=== PATIENT | female | born 1980 | race Caucasian/White ===

== ENCOUNTER 2019-01-29 14:38 | Emergency (ER) | payer MEDICAID, OTHER ==
[~2019-01-29] VITALS: Ht 167.6 cm; Wt 98.0 kg
--- NOTE | 2019-01-29 15:19 | ED Psychosocial ---
General Chief Complaint: Psych/Social Disorder Stated Complaint: SUICIDAL IDEATION History of Present Illness Date Seen by Provider: Jan 29, 2019 Time Seen by Provider: 15:15 Initial Comments The patient is a 38-year-old female who presents for evaluation of both suicidal and homicidal thoughts over the last few days. She states that she has been upset lately and actually thought about strangling her dog because it was the closest thing to her. She is also homicidal against her uncle. She states she lives with both of her parents. She reports a history of depression and suicidal attempts in the past. She has been hospitalized for psychiatric reasons in the past. She denies any recent inciting incident. She is alert and oriented 4, calm, and appears to be in no distress. She denies any ingestions or attempts to harm herself but did think about cutting her wrists. She denies fevers or chills, nausea or vomiting, chest pain or shortness of breath, abdominal or back pain. Timing/Duration: yesterday Severity: moderate Associated Symptoms: suicidal ideation (KALI GROVES DO) Allergies and Home Medications Allergies Coded Allergies: sertraline (Verified Allergy, Unknown, 01/29/19) Patient Home Medication List Home Medication List Reviewed: Yes (KALI GROVES DO) Review of Systems Constitutional: no symptoms reported EENTM: no symptoms reported Respiratory: no symptoms reported Cardiovascular: no symptoms reported Gastrointestinal: no symptoms reported Genitourinary: no symptoms reported : No Musculoskeletal: no symptoms reported Skin: no symptoms reported Psychiatric/Neurological: Depressed (tenderness to depression, suicidal thoughts, and homicidal thoughts) (KALI GROVES DO) All Other Systems Reviewed Negative Unless Noted: Yes (KALI GROVES DO) Past Sbiguvf-Zswdxi-Xgynkm Hx Past Med/Social Hx: Reviewed Nursing Past Med/Soc Hx, Reviewed and Corrections made (KALI GROVES DO) Physical Exam Vital Signs - First Documented 01/29/19 15:02 Temp 97.5 Pulse 110 Resp 20 B/P (MAP) 128/85 (99) Pulse Ox 97 O2 Delivery Room Air (HUSSEIN ACOSTA DO) Capillary Refill : (KALI GROVES DO) Height, Weight, BMI Height: '" Weight: lbs. oz. 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, no motor/sensory deficits, alert, normal mood/affect, oriented x 3 Appearance/Memory: appropriate appearance, appropriate insight Behavior/Eye Contact: cooperative Thoughts/Hallucinations: no apparent hallucination; No flight of ideas Skin: normal color, warm/dry Lymphatic: no adenopathy (KALI GROVES DO) Progress/Results/Core Measures Results/Orders Lab Results Laboratory Tests Test 01/29/19 15:08 01/29/19 15:35 01/29/19 21:56 Range/Units Urine Color YELLOW Urine Clarity CLEAR Urine pH 6.5 5-9 Urine Specific [place] 1.010 L 1.016-1.022 Urine Protein NEGATIVE NEGATIVE Urine Glucose (UA) 3+ H NEGATIVE Urine Ketones NEGATIVE NEGATIVE Urine Nitrite NEGATIVE NEGATIVE Urine Bilirubin NEGATIVE NEGATIVE Urine Urobilinogen 0.2 NORMAL MG/DL Urine Leukocyte Esterase NEGATIVE NEGATIVE Urine RBC (Auto) NEGATIVE NEGATIVE Urine RBC NONE /HPF Urine WBC 0-2 /HPF Urine Squamous Epithelial Cells 10-25 H /HPF Urine Crystals NONE /LPF Urine Bacteria TRACE /HPF Urine Casts NONE /LPF Urine Mucus SMALL H /LPF Urine Culture Indicated NO Urine Test NEGATIVE NEGATIVE Urine Opiates Screen NEGATIVE NEGATIVE Urine Oxycodone Screen NEGATIVE NEGATIVE Urine Methadone Screen NEGATIVE NEGATIVE Urine Propoxyphene Screen NEGATIVE NEGATIVE Urine Barbiturates Screen NEGATIVE NEGATIVE Ur Tricyclic Antidepressants Screen NEGATIVE NEGATIVE Urine Phencyclidine Screen NEGATIVE NEGATIVE Urine Amphetamines Screen NEGATIVE NEGATIVE Urine Methamphetamines Screen NEGATIVE NEGATIVE Urine Benzodiazepines Screen POSITIVE H NEGATIVE Urine Cocaine Screen NEGATIVE NEGATIVE Urine Cannabinoids Screen NEGATIVE NEGATIVE White Blood Count 11.7 H 4.3-11.0 10^3/uL Red Blood Count 4.18 L 4.35-5.85 10^6/uL Hemoglobin 12.7 11.5-16.0 G/DL Hematocrit 38 35-52 % Mean Corpuscular Volume 90 80-99 FL Mean Corpuscular Hemoglobin 30 25-34 PG Mean Corpuscular Hemoglobin Concent 34 32-36 G/DL Red Cell Distribution Width 13.3 10.0-14.5 % Platelet Count 399 130-400 10^3/uL Mean Platelet Volume 8.8 7.4-10.4 FL Neutrophils (%) (Auto) 76 H 42-75 % Lymphocytes (%) (Auto) 16 12-44 % Monocytes (%) (Auto) 6 0-12 % Eosinophils (%) (Auto) 1 0-10 % Basophils (%) (Auto) 0 0-10 % Neutrophils # (Auto) 9.0 H 1.8-7.8 X 10^3 Lymphocytes # (Auto) 1.9 1.0-4.0 X 10^3 Monocytes # (Auto) 0.7 0.0-1.0 X 10^3 Eosinophils # (Auto) 0.1 0.0-0.3 10^3/uL Basophils # (Auto) 0.0 0.0-0.1 10^3/uL Sodium Level 131 L 135-145 MMOL/L Potassium Level 4.3 3.6-5.0 MMOL/L Chloride Level 95 L 98-107 MMOL/L Carbon Dioxide Level 24 21-32 MMOL/L Anion Gap 12 5-14 MMOL/L Blood Urea Nitrogen 8 7-18 MG/DL Creatinine 0.42 L 0.60-1.30 MG/DL Estimat Glomerular Filtration Rate > 60 BUN/Creatinine Ratio 19 Glucose Level 316 H 70-105 MG/DL Calcium Level 9.4 8.5-10.1 MG/DL Corrected Calcium 8.5-10.1 MG/DL Total Bilirubin 0.3 0.1-1.0 MG/DL Aspartate Amino Transf (AST/SGOT) 11 5-34 U/L Alanine Aminotransferase (ALT/SGPT) 12 0-55 U/L Alkaline Phosphatase 145 H 40-136 U/L Total Protein 8.7 H 6.4-8.2 GM/DL Albumin 4.6 H 3.2-4.5 GM/DL Salicylates Level < 0.3 L 5.0-20.0 MG/DL Acetaminophen Level < 10 L 10-30 UG/ML Serum Alcohol < 10 <10 MG/DL Glucometer 220 H 70-110 MG/DL (HUSSEIN ACOSTA DO) Vital Signs/I&O 6/7/19 23:58 Temp 98.4 Pulse 93 Resp 20 B/P (MAP) 122/76 (91) Pulse Ox 97 O2 Delivery Room Air 01/30/19 00:00 Intake Total 1000 ml Balance 1000 ml (HUSSEIN ACOSTA DO) Progress Progress Note : Progress Note @1635 - Pt medically cleared at this time. Pt getting 1L NS bolus to improve hyponatremia. Pt is stable. @1800 - Pt care transferred to Dr. Ana Rosa Acosta at this time. (KALI GROVES DO) Progress Note : Progress Note @18:30- spoke c/ the psych screener who felt Meche did not require inpatient placement, or treatment @ this time and recommended outpatient follow up to her. (HUSSEIN ACOSTA DO) Initial ECG Impression Date: Jan 29, 2019 Initial ECG Impression Time: 16:20 Comment Normal sinus rhythm, rate of 90, normal axis, no acute ischemic findings noted, no STEMI, reviewed and interpreted by myself (KALI GROVES DO) Care transferred to: @1800 - Care transferred to Dr. Ana Rosa Acosta.\\ (KALI GROVES DO) Departure Impression Primary Impression: Depression Additional Impressions: Suicidal thoughts Homicidal thoughts Disposition: 65 XFER TO PSYCH HOSP/UNIT Condition: Stable Transfer Time Spoke to Accepting Phy: 23:10 Transfer Progress Notes Patient accepted by Dr. Jhaveri to [facility] in [place]. Transfer Facility: [facility] Method of Transfer: Transfer via [facility] (HUSSEIN ACOSTA DO) Departure-Patient Inst. Referrals: NO,LOCAL PHYSICIAN (PCP/Family) Primary Care Physician KALI GROVES DO Jan 29, 2019 15:18 HUSSEIN ACOSTA DO Jan 29, 2019 18:49
[2019-01-29 15:44] LABS: AMPHETAMINE SCREEN, URINE NEGATIVE (NEGATIVE); BARBITURATE SCREEN URINE NEGATIVE (NEGATIVE); BENZODIAZEPINES SCREEN URINE POSITIVE (NEGATIVE); CANNABINOID SCREEN, URINE NEGATIVE (NEGATIVE); COCAINE SCREEN URINE NEGATIVE (NEGATIVE); HCG,QUALITATIVE URINE NEGATIVE (NEGATIVE); METHADONE STAT NEGATIVE (NEGATIVE); METHAMPHETAMINE SCREEN URINE S NEGATIVE (NEGATIVE); OPIATE SCREEN URINE NEGATIVE (NEGATIVE); TRICYCLIC ANTIDEPRESSANTS SCRE NEGATIVE (NEGATIVE)
[2019-01-29 15:45] LABS: CLARITY,URINE CLEAR; COLOR,URINE YELLOW; OXYCODONE STAT NEGATIVE (NEGATIVE); PH,URINE 6.5 (5-9); PROPOXYPHENE STAT NEGATIVE (NEGATIVE)
[2019-01-29 15:46] LABS: BACTERIA,URINE TRACE /HPF; BILIRUBIN,URINE NEGATIVE (NEGATIVE); GLUCOSE, URINE (UA) 3+ (NEGATIVE); KETONES,URINE NEGATIVE (NEGATIVE); LEUKOCYTE ESTERASE ,URINE NEGATIVE (NEGATIVE); NITRITE,URINE NEGATIVE (NEGATIVE); PROTEIN,URINE NEGATIVE (NEGATIVE); UROBILINOGEN,URINE 0.2 MG/DL (NORMAL); WBC,URINE 0-2 /HPF
[2019-01-29 15:47] LABS: WHITE BLOOD COUNT 11.7 10^3/uL (4.3-11.0)
[2019-01-29 15:48] LABS: BASOPHILS % (AUTO) 0 % (0-10); EOSINOPHILS % (AUTO) 1 % (0-10); HEMATOCRIT 38 % (35-52); HEMOGLOBIN 12.7 G/DL (11.5-16.0); LYMPHOCYTES # (AUTO) 1.9 X 10^3 (1.0-4.0); LYMPHOCYTES % (AUTO) 16 % (12-44); MEAN CORPUSCULAR HEMOGLOBIN 30 PG (25-34); MEAN CORPUSCULAR HGB CONC 34 G/DL (32-36); MEAN CORPUSCULAR VOLUME 90 FL (80-99); MEAN PLATELET VOLUME 8.8 FL (7.4-10.4); MONOCYTES % (AUTO) 6 % (0-12); NEUTROPHILS % (AUTO) 76 % (42-75); PLATELET COUNT 399 10^3/uL (130-400); RED CELL DISTRIBUTION WIDTH 13.3 % (10.0-14.5)
[2019-01-29 15:49] LABS: EOSINOPHILS # (AUTO) 0.1 10^3/uL (0.0-0.3); MONOCYTES # (AUTO) 0.7 X 10^3 (0.0-1.0)
[2019-01-29 16:11] LABS: ALANINE AMINOTRANSFERASE 12 U/L (0-55); ALBUMIN 4.6 GM/DL (3.2-4.5); ALKALINE PHOSPHATASE 145 U/L (40-136); BILIRUBIN,TOTAL 0.3 MG/DL (0.1-1.0); BUN/CREATININE RATIO 19; CALCIUM 9.4 MG/DL (8.5-10.1); CARBON DIOXIDE 24 MMOL/L (21-32); CHLORIDE 95 MMOL/L (98-107); CREATININE SERUM 0.42 MG/DL (0.60-1.30); GFR ESTIMATED > 60; GLUCOSE 316 MG/DL (70-105); POTASSIUM 4.3 MMOL/L (3.6-5.0); SODIUM 131 MMOL/L (135-145); TOTAL PROTEIN 8.7 GM/DL (6.4-8.2)
[2019-01-29 16:12] LABS: ACETAMINOPHEN < 10 UG/ML (10-30); SALICYLATE < 0.3 MG/DL (5.0-20.0)
[2019-01-29] MEDS ORDERED: NS IV 1000 ML 1,000 ML IV SCH (16:45)
--- OUTSIDE RECORDS SUMMARY | 2019-01-29 17:18 | XMS REPORT ---
Author Author ADA LOFTON Organization [employer] Address Unknown Phone Unavailable Care Team Providers Care Group Fitness Manager Name Role Phone ADA LOFTON CP Unavailable Allergies No Known Allergies Problems Problem Type Condition ICD-9 Code Onset Dates Condition Status Assessment Dental examination V72.2 Active Medications No Known Medications Procedures Procedure Coding System Code Date INTRAORL-PERIAPICAL 1 FILM 55928 CPT-4 D0220 Apr 12, 2015 SURG REMOVAL ERUPTED TOOTH CPT-4 D7210 Apr 12, 2015 LTD ORAL EVALUATION - PROBLEM FOCUS CPT-4 D0140 Apr 12, 2015 Results No Known Results Summary Purpose [employer] Submission
--- OUTSIDE RECORDS SUMMARY | 2019-01-29 17:18 | XMS REPORT | Continuity of Care Document ---
Author Organization Unknown Address Unknown Allergies Active Description Code Type Severity Reaction Onset Reported/Identified Relationship to Patient Clinical Status Yes SERTRALINE HCL 05479 DRUG High Sob~Rash 02/07/2012 Yes SIMVASTATIN - HIGH DOSE 78533 DRUG INGREDI High Sob 02/07/2012 Medications Medication Packaging Start Date Stop Date Route Dosage Sig INFLUENZA VAC SPLIT QUAD 0.5 ML IM HEMALATHA 08/01/2015 Intramuscular 0.5 Prior to discharge TRAZODONE HCL 100 MG PO TABS 08/01/2015 Oral 100 BEDTIME PRN OLANZAPINE 10 MG PO TBDP 08/01/2015 Sublingual 10 2 TIMES DAILY PRN QUETIAPINE FUMARATE 25 MG PO TABS 08/01/2015 Oral 25 4 TIMES DAILY PRN MAGNESIUM HYDROXIDE 400 MG/5ML PO SUSP 08/01/2015 Oral 30 DAILY PRN ACETAMINOPHEN 325 MG PO TABS 08/01/2015 Oral 650 EVERY 6 HOURS PRN ALUM T MAG HYDROXIDE-SIMETH 200-200-20 MG/5ML PO SUSP 08/01/2015 Oral 30 4 TIMES DAILY PRN FLUTICASONE PROPIONATE HFA 110 MCG/ACT IN AERO 08/01/2015 Inhalation 1 2 TIMES DAILY PRN ALBUTEROL SULFATE HFA 108 (90 BASE) MCG/ACT IN AERS 08/01/2015 Inhalation 2 4 TIMES DAILY PRN METFORMIN HCL 500 MG PO TABS 08/01/2015 Oral 1000 2 TIMES DAILY WITH MEALS GLYBURIDE 5 MG PO TABS 08/01/2015 Oral 5 DAILY WITH BREAKFAST GLYBURIDE 5 MG PO TABS 08/01/2015 Oral 5 DAILY WITH BREAKFAST METFORMIN HCL 500 MG PO TABS 08/01/2015 Oral 1000 2 TIMES DAILY WITH MEALS INFLUENZA VAC SPLIT QUAD 0.5 ML IM HEMALATHA 08/01/2015 Intramuscular 0.5 ONCE ESCITALOPRAM OXALATE 20 MG PO TABS 08/01/2015 Oral 20 DAILY DEXTROSE 50 % IV SOLN 08/01/2015 Intravenous 50 PRN GLUCOSE 40 % PO GEL 08/01/2015 Oral 15 PRN GLUCAGON HCL (RDNA) 1 MG IJ SOLR 08/01/2015 Intravenous 1 PRN INSULIN ASPART 100 UNIT/ML SC SOPN 08/01/2015 Subcutaneous 3 TIMES DAILY BEFORE MEALS QUETIAPINE FUMARATE ER 50 MG PO TB24 08/01/2015 Oral 50 DAILY AT 1900 QUETIAPINE FUMARATE ER 50 MG PO TB24 08/02/2015 Oral 100 DAILY AT 1900 GLYBURIDE 5 MG PO TABS 08/03/2015 Oral 10 DAILY WITH BREAKFAST QUETIAPINE FUMARATE ER 50 MG PO TB24 08/03/2015 Oral 150 DAILY AT 1900 Problems Date Dx Coded Attending Type Code Diagnosis Diagnosed By 08/01/2015 ARACELI OTT V 114413 Suicidal [facility] 08/01/2015 TANJIM, ARACELI V 069485 Suicidal [facility] 08/01/2015 TANJIM, ARACELI V 134329 Suicidal [facility] 08/01/2015 TANJIM, ARACELI P F32.9 Major depressive disorder, single episode, unspecified [facility] 08/01/2015 TANJIM, ARACELI P R45.851 Suicidal ideations [facility], [facility] 08/01/2015 TANJIM, ARACELI V [id number] Suicidal [facility] 08/01/2015 TANJIM, ARACELI P F32.9 Major depressive disorder, single episode, unspecified [facility] 08/01/2015 TANJIM, ARACELI P R45.851 Suicidal ideations [facility] 08/01/2015 TANJIM, ARACELI V [id number] Suicidal [facility] 08/01/2015 TANJIM, ARACELI P F32.9 Major depressive disorder, single episode, unspecified [facility] 08/01/2015 TANJIM, ARACELI P R45.851 Suicidal ideations [facility] 08/02/2015 TANJIM, ARACELI V [id number] Suicidal [facility], [facility] 08/02/2015 TANJIM, ARACELI P F32.9 Major depressive disorder, single episode, unspecified [facility] 08/02/2015 TANJIM, ARACELI P R45.851 Suicidal ideations [facility] 08/02/2015 TANJIM, ARACELI V [id number] Suicidal [facility], [facility] 08/02/2015 TANJIM, ARACELI P F32.9 Major depressive disorder, single episode, unspecified [facility], [facility] 08/02/2015 TANJIM, ARACELI P R45.851 Suicidal ideations [facility], [facility] 08/02/2015 TANJIM, ARACELI V [id number] Suicidal [facility], [facility] 08/02/2015 TANJIM, ARACELI P F32.9 Major depressive disorder, single episode, unspecified [facility], [facility] 08/02/2015 TANJIM, ARACELI P R45.851 Suicidal ideations [facility], [facility] 08/02/2015 TANJIM, ARACELI V [id number] Suicidal [facility]IM, [facility] 08/02/2015 TANJIM, ARACELI P F32.9 Major depressive disorder, single episode, unspecified [facility], [facility] 08/02/2015 TANJIM, ARACELI P R45.851 Suicidal ideations [facility], [facility] 08/03/2015 TANJIM, ARACELI V [id number] Suicidal [facility]IM, [facility] 08/03/2015 TANJIM, ARACELI P F32.9 Major depressive disorder, single episode, unspecified [facility]IM, [facility] 08/03/2015 TANJIM, ARACELI P R45.851 Suicidal ideations [facility], [facility] 08/03/2015 TANJIM, ARACELI V [id number] Suicidal [facility]IM, [facility] 08/03/2015 TANJIM, ARACELI P F32.9 Major depressive disorder, single episode, unspecified [facility], [facility] 08/03/2015 TANJIM, ARACELI P R45.851 Suicidal ideations [facility], [facility] 08/03/2015 TANJIM, ARACELI V 100633 Suicidal [facility]IM, [facility] 08/03/2015 TANJIM, ARACELI P F32.9 Major depressive disorder, single episode, unspecified [facility]ANJIM, [facility] 08/03/2015 TANJIM, ARACELI P R45.851 Suicidal ideations TANJIM, [facility]ELI 08/03/2015 TANJIM, ARACELI V [id number] Suicidal TANJIM, [facility]ELI 08/03/2015 TANJIM, ARACELI P F32.9 Major depressive disorder, single episode, unspecified TANJIM, [facility]I 08/03/2015 TANJIM, ARACELI P R45.851 Suicidal ideations TANJIM, [facility] 08/04/2015 TANJIM, ARACELI V [id number] Suicidal TANJIM, [facility] 08/04/2015 TANJIM, ARACELI P F32.9 Major depressive disorder, single episode, unspecified TANJIM, [facility] 08/04/2015 TANJIM, ARACELI P R45.851 Suicidal ideations TANJIM, [facility]ELI 08/04/2015 TANJIM, ARACELI V [id number] Suicidal TANJIM, [facility] 08/04/2015 TANJIM, ARACELI P F32.9 Major depressive disorder, single episode, unspecified TANJIM, [facility]ELI 08/04/2015 TANJIM, ARACELI P R45.851 Suicidal ideations TANJIM, AR[facility]ELI 08/04/2015 TANJIM, ARACELI V [id number] Suicidal TANJIM, [facility] 08/04/2015 TANJIM, ARACELI P F32.9 Major depressive disorder, single episode, unspecified TANJIM, ARACELI 08/04/2015 TANJIM, ARACELI P R45.851 Suicidal ideations TANJIM, ARACELI Procedures There is no data. Results Test Result Range HEMOGLOBIN A1C - 08/02/15 06:08 HEMOGLOBIN A1C 7.6 % 4.0-6.0 TSH w/ FREE T4 - 12/16/18 14:21 TSH 0.82 mIU/L NRG T4, FREE 1.1 ng/dL 0.8-1.8 CMP - 12/16/18 14:21 GLUCOSE 167 mg/dL 65-99 UREA NITROGEN (BUN) 10 mg/dL 7-25 CREATININE 0.61 mg/dL 0.50-1.10 eGFR NON-AFR. DUTCH 117 mL/min/1.73m2 > OR=60 eGFR 135 mL/min/1.73m2 > OR=60 BUN/CREATININE RATIO NOT APPLICABLE (calc) 6-22 SODIUM 139 mmol/L 135-146 POTASSIUM 3.9 mmol/L 3.5-5.3 CHLORIDE 103 mmol/L 98-110 CARBON DIOXIDE 25 mmol/L 20-32 CALCIUM 9.5 mg/dL 8.6-10.2 PROTEIN, TOTAL 7.1 g/dL 6.1-8.1 ALBUMIN 4.1 g/dL 3.6-5.1 GLOBULIN 3.0 g/dL (calc) 1.9-3.7 ALBUMIN/GLOBULIN RATIO 1.4 (calc) 1.0-2.5 BILIRUBIN, TOTAL 0.3 mg/dL 0.2-1.2 ALKALINE PHOSPHATASE 101 U/L 33-115 AST 17 U/L 10-30 ALT 22 U/L 6-29 CBC w/MANUAL DIFF - 12/16/18 14:21 WHITE BLOOD CELL COUNT 10.7 Thousand/uL 3.8-10.8 RED BLOOD CELL COUNT 3.91 Million/uL 3.80-5.10 HEMOGLOBIN 11.9 g/dL 11.7-15.5 HEMATOCRIT 36.0 % 35.0-45.0 MCV 92.1 fL 80.0-100.0 MCH 30.4 pg 27.0-33.0 MCHC 33.1 g/dL 32.0-36.0 RDW 13.4 % 11.0-15.0 PLATELET COUNT 343 Thousand/uL 140-400 MPV 8.9 fL 7.5-12.5 ABSOLUTE NEUTROPHILS 8100 cells/uL 7200-2611 ABSOLUTE MONOCYTES 674 cells/uL 200-950 ABSOLUTE EOSINOPHILS 0 cells/uL 15-500 ABSOLUTE BASOPHILS 96 cells/uL 0-200 NEUTROPHILS 75.7 % NRG LYMPHOCYTES 17.1 % NRG MONOCYTES 6.3 % NRG EOSINOPHILS 0 % NRG BASOPHILS 0.9 % NRG ABSOLUTE LYMPHOCYTES 1830 cells/uL 850-3900 PLATELET ESTIMATION ADEQUATE ADEQUATE COMMENT(S) NRG HCG, QUANTITATIVE - 12/16/18 14:21 HCG, TOTAL, QN <2 mIU/mL NRG Encounters ACCT No. Visit Date/Time Discharge Status Pt. Type Provider Facility Loc./Unit Complaint [id number] 12/16/2018 14:00:00 12/16/2018 23:59:59 [facility] Outpatient [facility] [id number] 12/16/2018 14:00:00 Document Registration [id number] 07/31/2015 22:55:00 08/04/2015 15:50:00 [facility] Inpatient ARACELI OTT [facility] [id number] 08/01/2015 01:10:39 Document Registration
--- NOTE | 2019-01-29 18:00 | NUR ---
[facility] contacted at 1700 requesting mental health screening. Patients mental health evaluation started at 1735 by Parisa. After screening Parisa stated that the patient had declined a safety plan and wanted to be admitted at a facility. Parisa spoke to Dr. Watson and stated that she was developing a safety plan for the patient the patient would be able to be discharge home.
[2019-01-29 23:58] VITALS: BP 122/76
== END 2019-01-29 23:58 ==
LOC: ER FS 14:41
DX: F32.9 Major depressive disorder, single episode, unspecified (principal); R45.851 Suicidal ideations; R45.850 Homicidal ideations; Z88.8 Allergy status to other drugs, medicaments and biological substances
CPT/HCPCS: 36415; 80053; 80306; 80320; 80329; 81000; 82962; 84703; 85025; 93005; 96360

== ENCOUNTER 2022-08-20 11:15 | Emergency (ER) | payer MEDICAID ==
[~2022-08-20] VITALS: Ht 167.7 cm; Wt 106.6 kg
[2022-08-20] MEDS ORDERED: MIDAZOLAM 2 MG/2 ML (VERSED) VIAL INJ ONE (11:30)
[2022-08-20] MEDS ORDERED: fentaNYL INJ 100 MCG/2 ML AMP INJ ONE (11:30)
[2022-08-20] MEDS ORDERED: NS IV 1000 ML 1,000 ML ONE (11:39)
[2022-08-20] MEDS ORDERED: NS IV 1000 ML 1,000 ML IV STA (11:45)
--- NOTE | 2022-08-20 12:01 | Diagnostic Imaging Report ---
Indication: Left ankle injury 3 views of left ankle show lateral displacement of the ankle. There is an avulsion fracture the medial malleolus and of the posterior malleolus of the distal tibia. The lateral malleolus appears to be grossly intact. IMPRESSION: Fracture dislocation of the tibiotalar joint with fractures of the posterior malleolus and medial malleolus of the tibia. The talus is dislocated laterally. Dictated by: Dictated on workstation # [id number]
--- NOTE | 2022-08-20 12:09 | ED Fall/Injury ---
General Chief Complaint: Lower Extremity Stated Complaint: LT ANKLE INJ Nursing Triage Note: Patient brought to the ED by [facility] for chief complaint of left ankle injury. Patient reports she stepped off a curb and rolled her left ankle. Patient has obvious deformity of left ankle. Per EMS, patient received a total of 2 mg of dilaudid prior to ED arrival. Source: patient, EMS History of Present Illness Date Seen by Provider: Aug 20, 2022 Time Seen by Provider: 11:18 Initial Comments 41 yo female presenting by EMS from having a standing height fall when stepped off curb. She rolled her ankle and had immediate pain and has obvious deformity to the ankle. She denies hitting her head or losing consciousness and denies other injury. She has intact sensation and pulses to the foot on left side. She denies injury or problems with that ankle before. She has not taken any of her psychiatric medicines today. she has not eaten or drank anything since last night. Occurred: this morning (a little after 10 am) Severity: severe Injuries/Pain Location: lower extremity (left ankle) Context: slipped Loss of Consciousness: no loss of consciousness Modifying Factors: Worse With Movement; Improves With Pain Medication (Dilaudid by EMS 2 mg total) Associated Symptoms (Fall): No Abdominal Pain, No Chest Pain, No Confusion, No Dizziness, No Headache, No Lightheadedness, No Muscle Spasms, No Nausea/Vomiting, No Neck Pain, No Ringing in Ears, No Seizures, No Shortness of Air, No Slurred Speech; Trouble Walking (unable to stand or walk after rolling her ankle); No Vision Changes Allergies and Home Medications Allergies Coded Allergies: sertraline (Verified Allergy, Unknown, 01/29/19) Patient Home Medication List Home Medication List Reviewed: Yes Review of Systems Review of Systems Constitutional: No chills, No fever Eyes: No Symptoms Reported Ears, Nose, Mouth, Throat: no symptoms reported Respiratory: no symptoms reported Cardiovascular: no symptoms reported Gastrointestinal: no symptoms reported Genitourinary: no symptoms reported Musculoskeletal: see HPI Skin: see HPI, change in color (erythema with abrasion to medial ankle by where she has tenting of the skin) Psychiatric/Neurological: Denies Numbness, Denies Paresthesia, Denies Tingling, Denies Weakness Past Ubwcqis-Hmfkwj-Eemrqx Hx Patient Social History Tobacco Use?: No Use of E-Cig and/or Vaping dev: No Substance use?: No Alcohol Use?: No Seasonal Allergies Seasonal Allergies: No Past Medical History Surgery/Hospitalization HX: Anxiety, Depression, Hypertension, Diabetes Mellitus Insulin Dependent Surgeries: No Respiratory: Yes (Fluid on her lungs) Cardiac: No Neurological: No Last Menstrual Period: Jul 25, 2022 Genitourinary: No Gastrointestinal: No Musculoskeletal: No Endocrine: Yes Diabetes, Insulin dep HEENT: No Cancer: No Psychosocial: Yes Anxiety, Suicide Attempts, Depression Integumentary: No Blood Disorders: No Physical Exam Vital Signs Vital Signs - First Documented 08/20/22 08/20/22 11:20 11:30 Temp 36.3 Pulse 117 Resp 20 B/P (MAP) 154/77 (102) Pulse Ox 91 O2 Delivery Room Air O2 Flow Rate 3.00 Capillary Refill : Less Than 3 Seconds Height, Weight, BMI Height: 5'6.00" Weight: 216lbs. oz. 97.389269nr; 37.00 BMI Method:Stated General Appearance: no apparent distress, obese HEENT: PERRL/EOMI, pharynx normal Neck: non-tender, full range of motion, supple, normal inspection Cardiovascular: normal peripheral pulses, regular rate, rhythm Respiratory: chest non-tender, lungs clear, normal breath sounds, no respiratory distress, no accessory muscle use Gastrointestinal: normal bowel sounds, non tender, soft, no pulsatile mass Extremities: no pedal edema, normal capillary refill, pelvis stable, other (tender to palpation on left ankle area where she has obvious deformity and tenting of the skin medially. There is an abrasion but no puncture through the skin. She is intact to light touch for sensation, moving her toes without difficulty. Unable to move at ankle due to pain and fracture/deformity.) Neurologic/Psychiatric: music rehabilitation therapist II-XII nml as tested, no motor/sensory deficits, alert, oriented x 3 Skin: warm/dry Conor Coma Score Best Eye Response: (4) Open Spontaneously Best Verbal Response: (5) Oriented Best Motor Response: (6) Obeys Commands Dixie Total: 15 Procedures/Interventions Splinting and Joint Reduction : Location: left leg Pre-Proc Neuro Vasc Exam: normal Post-Proc Neuro Vasc Exam: normal Progress After obtaining informed consent from the patient the left leg was placed in a posterior splint as a temporary measure to help stabilize the proximal fracture of the fibula and the distal tibia fracture. Patient was neurovascularly intact both pre and post splinting. Given additional dose of Dilaudid 0.5 mg IV to help with pain prior to transport. Progress/Results/Core Measures Results/Orders Lab Results Laboratory Tests Test 08/20/22 12:10 08/20/22 12:15 Range/Units Glucometer 215 H 70-110 MG/DL White Blood Count 10.5 4.3-11.0 10^3/uL Red Blood Count 4.49 3.80-5.11 10^6/uL Hemoglobin 13.6 11.5-16.0 g/dL Hematocrit 40 35-52 % Mean Corpuscular Volume 88 80-99 fL Mean Corpuscular Hemoglobin 30 25-34 pg Mean Corpuscular Hemoglobin Concent 34 32-36 g/dL Red Cell Distribution Width 13.2 10.0-14.5 % Platelet Count 269 130-400 10^3/uL Mean Platelet Volume 8.6 L 9.0-12.2 fL Immature Granulocyte % (Auto) 1 % Neutrophils (%) (Auto) 80 H 42-75 % Lymphocytes (%) (Auto) 14 12-44 % Monocytes (%) (Auto) 5 0-12 % Eosinophils (%) (Auto) 1 0-10 % Basophils (%) (Auto) 0 0-10 % Neutrophils # (Auto) 8.4 H 1.8-7.8 10^3/uL Lymphocytes # (Auto) 1.5 1.0-4.0 10^3/uL Monocytes # (Auto) 0.5 0.0-1.0 10^3/uL Eosinophils # (Auto) 0.1 0.0-0.3 10^3/uL Basophils # (Auto) 0.0 0.0-0.1 10^3/uL Immature Granulocyte # (Auto) 0.1 0.0-0.1 10^3/uL Sodium Level 134 L 135-145 MMOL/L Potassium Level 4.3 3.6-5.0 MMOL/L Chloride Level 100 98-107 MMOL/L Carbon Dioxide Level 24 21-32 MMOL/L Anion Gap 10 5-14 MMOL/L Blood Urea Nitrogen 9 7-18 MG/DL Creatinine 0.51 L 0.60-1.30 MG/DL Estimat Glomerular Filtration Rate 122 BUN/Creatinine Ratio 18 Glucose Level 242 H 70-105 MG/DL Calcium Level 9.1 8.5-10.1 MG/DL Corrected Calcium 8.9 8.5-10.1 MG/DL Total Bilirubin 0.3 0.1-1.0 MG/DL Aspartate Amino Transf (AST/SGOT) 15 5-34 U/L Alanine Aminotransferase (ALT/SGPT) 18 0-55 U/L Alkaline Phosphatase 140 H 40-136 U/L Total Protein 7.8 6.4-8.2 GM/DL Albumin 4.2 3.2-4.5 GM/DL My Orders Orders - KELECHI ELLINGTON MD Ankle 3 View Left (08/20/22 11:27) Ice: Apply To Affected Area (08/20/22 11:27) O2 (08/20/22 11:27) Consent-Obtain Consent For (08/20/22 11:28) Conscious Sedation (08/20/22 11:28) Monitor-Rhythm Ecg Trace Only (08/20/22 11:28) Ed Iv/Invasive Line Start (08/20/22 11:28) End Tidal Co2 (08/20/22 11:28) Vital Signs-Conscious Sedation (08/20/22 11:28) Ns Iv 1000 Ml (Sodium Chloride 0.9%) (08/20/22 11:39) Tibia Fibula 2 View Left (08/20/22 11:43) Ns Iv 1000 Ml (Sodium Chloride 0.9%) (08/20/22 11:45) Cbc With Automated Diff (08/20/22 11:59) Comprehensive Metabolic Panel (08/20/22 11:59) Accucheck Stat ONCE (08/20/22 11:59) Ed Ortho/Other Supplies Order (08/20/22 12:16) Ortho Glass (08/20/22 12:16) Orthopedic Equiment (08/20/22 12:16) Hydromorphone Injection (Dilaudid Inject (08/20/22 12:16) Vital Signs/I&O 08/20/22 08/20/22 08/20/22 11:20 11:30 13:12 Temp 36.3 Pulse 117 99 Resp 20 16 B/P (MAP) 154/77 (102) 133/78 Pulse Ox 91 97 97 O2 Delivery Room Air Nasal Cannula Nasal Cannula O2 Flow Rate 3.00 2.00 Blood Pressure Mean: 102 Progress Progress Note #1: Progress Note Patient had just been given 2 milligrams of Dilaudid by EMS so on arrival to the ED I attempted to see if I could reduce her ankle and take pressure off of the tenting of her medial aspect of the skin on the ankle. She tolerated this well without any immediate complication but I was unable to produce any movement with the ankle or foot. She remained neurovascular and tendon intact both pre and post attempts at reducing her ankle. We will proceed with x-rays to evaluate for fracture and see where the bone fragments are. will anticipate trying conscious sedation to try and reduce ankle once I can see what the xrays show si nce I was unable to move the ankle while she had pain managed with Dilaudid from EMS. After I personally reviewed and interpreted her x-rays she had distal tibial fracture with dislocation and there was still a portion of her distal fibula in place on top of her talus. I added on x-rays to look at the tib-fib for more proximal fibula fracture. Will defer attempts at conscious sedation as I will not be able to place enough distal traction to get the bone fragments in place. She will need OR setting to reduce the fracture. Will plan on placing long leg posterior splint to stabilize ankle and the proximal displaced fracture of fibul a seen on the additional films. Call placed to Dr. AVALOS at [phone]. He reviewed images and was recommending patient go to a trauma center such as [facility] since she had a variation of a Pilon fracture. When discussed with patient she requested [facility] as she had previously been seen there. Progress Note #2: Time: 12:08 Progress Note d/w Dr. Diamond Mares, transfer physician for [facility] and Dr. Cook for ED. reviewed the case of her distal tibia and proximal fibula fracture with no other acute injuries. After discussion with local orthopedic surgeon it was advised that she would need a traumatic Ortho surgeon and patient was requesting [facility] as she has previously been seen there. As I do not have a way to reduce her fracture and relieve the tenting of her skin here she will need transfer emergently for orthopedic care. We will place a posterior splint to help stabilize her proximal fibula and distal tibia fractures. They accepted patient to the [facility] location. 1218 EMS reported they could not transport the patient unless she could not be cared for at a closer facility such as [facility], or [facility]. They stated that insurance would not cover her to go to a farther facility such as [facility] unless she could not be cared for at a closer trauma center. [facility] and [facility] would not have the level of Trauma Orthopedics that the patient needed from discussion with Dr. Avalos. Will check with [facility] to see if they can take the patient. If not will proceed with [facility] since she was already accepted there. 1226 After discussion with patient she was agreeable to closer facility such as [facility] so insurance would cover her transfer. I spoke with Dr. Villalba at [facility] ED and he accepted pt provided Orthopedics Dr. Razia Jimenez was able to take the patient. 1237 VINICIUS Martinez, from [facility] Access Center called back after discussing case with Dr. Razia Jimenez. She was agreeable to the transfer. Will let nurses know so EMS could come to transport her and call nursing report to the ED. I called [facility] transfer center back and let VINICIUS Rushing, know that pt was not coming to [facility] after all so they would not be waiting on her. Progress Note #3: Progress Note CBC and Chemistry added on for labs since pt will be transferred for trauma orthopedic specialty care. CBC did not show acute significant abnormality and she was not anemic or having elevated WBC. Chemistry with elevated glucose to 242 but otherwise no acute significant abnormality on electrolytes, renal or hepatic function. Diagnostic Imaging Diagonstic Imaging: Xray Plain Films/CT/US/NM/MRI: ankle Comments [facility]. [place], [place] NAME: KEO DEUTSCH TIKI REC#: [id number] PT STATUS: REG ER : 1980 PHYSICIAN: KELECHI ELLINGTON MD ADMIT DATE: 08/20/22/ER FS Signed Date of Exam:08/20/22 ANKLE 3 VIEW LEFT Indication: Left ankle injury 3 views of left ankle show lateral displacement of the ankle. There is an avulsion fracture the medial malleolus and of the posterior malleolus of the distal tibia. The lateral malleolus appears to be grossly intact. IMPRESSION: Fracture dislocation of the tibiotalar joint with fractures of the posterior malleolus and medial malleolus of the tibia. The talus is dislocated laterally. Dictated by: Dictated on workstation # [id number] Dict: 08/20/22 1159 Trans: 08/20/22 1200 [facility] [id number] Interpreted by: ARA ASTUDILLO MD Electronically signed by: ARA ASTUDILLO MD 08/20/22 1200 Reviewed: Reviewed by [place] Diagonstic Imaging: Xray Plain Films/CT/US/NM/MRI: leg Comments [facility] [place] [place] NAME: KEO DEUTSCH [facility] REC#: [id number] PT STATUS: REG ER : 1980 PHYSICIAN: KELECHI ELLINGTON MD ADMIT DATE: 08/20/22/ER FS Signed Date of Exam:08/20/22 TIBIA FIBULA 2 VIEW LEFT Indication: Left leg injury AP lateral views of the proximal tibia shaft show an anteriorly displaced oblique fracture of the proximal fibular shaft. The ankle fracture is reported separately. IMPRESSION: Displaced oblique fracture proximal fibular shaft. Dictated by: Dictated on workstation # [id number] Dict: 08/20/22 1211 Trans: 08/20/22 1212 TCB [id number] Interpreted by: ARA ASTUDILLO MD Electronically signed by: ARA ASTUDILLO MD 08/20/22 1212 Departure Impression Primary Impression: Closed pilon fracture of left tibia Qualified Codes: S82.872A - Displaced pilon fracture of left tibia, initial encounter for closed fracture Additional Impressions: Traumatic closed fracture of proximal end of fibula with minimal displacement Qualified Codes: S82.832A - Other fracture of upper and lower end of left fibula, initial encounter for closed fracture Fall (on)(from) sidewalk curb, initial encounter Disposition: 02 XFER SHT-TRM HOSP Condition: Critical (tenting of skin on medial aspect and unable to reduce without OR so at risk of skin breakdown and having to deal with wound care in addition to fracture) Transfer Transfer Reason: Exceeds level of care (Orthopedic Trauma surgeon) Time Spoke to Accepting Phy: 12:26 Transfer Progress Notes 1228 d/w Dr. Villalba for [facility] ED. Reviewed with him that the patient has distal tibia and proximal fibula fracture from a fall stepping off curb. Local Orthopedics Dr. Avalos reviewed images and advised she needed trauma Orthopedic care beyond what he can do for her in [place]. She is neurovascularly intact and I was unable to move her ankle at all when tried after her pain medicine of 2 mg Dilaudid by EMS. Then xrays show she has the distal tibia fracture with displacement by 100% and overriding the talus and ankle by 3-4 cm so unable to provide enough traction to get any movement of the fracture. Placed in long leg posterior splint and remains neurovascularly intact both pre and post splinting. He accepted pt to ED but wanted to ensure telephone directory distributor driver Orthopedics Dr. Razia Jimenez was in agreement. VINICIUS Martinez, from [facility] center called back at [phone] Jimenez and she was agreeable with the transfer. Transfer Facility: [facility] Method of Transfer: EMS Departure-Patient Inst. Referrals: NO,LOCAL PHYSICIAN (PCP/Family) Primary Care Physician KELECHI ELLINGTON MD Aug 20, 2022 12:09
--- NOTE | 2022-08-20 12:13 | Diagnostic Imaging Report ---
Indication: Left leg injury AP lateral views of the proximal tibia shaft show an anteriorly displaced oblique fracture of the proximal fibular shaft. The ankle fracture is reported separately. IMPRESSION: Displaced oblique fracture proximal fibular shaft. Dictated by: Dictated on workstation # [id number]
[2022-08-20] MEDS ORDERED: HYDROmorphone 2 MG/ML VIAL (DILAUDID) IV STA (12:16)
[2022-08-20 12:19] LABS: BASOPHILS % (AUTO) 0 % (0-10); EOSINOPHILS # (AUTO) 0.1 10^3/uL (0.0-0.3); EOSINOPHILS % (AUTO) 1 % (0-10); HEMATOCRIT 40 % (35-52); HEMOGLOBIN 13.6 g/dL (11.5-16.0); LYMPHOCYTES # (AUTO) 1.5 10^3/uL (1.0-4.0); LYMPHOCYTES % (AUTO) 14 % (12-44); MEAN CORPUSCULAR HEMOGLOBIN 30 pg (25-34); MEAN CORPUSCULAR HGB CONC 34 g/dL (32-36); MEAN CORPUSCULAR VOLUME 88 fL (80-99); MEAN PLATELET VOLUME 8.6 fL (9.0-12.2); MONOCYTES # (AUTO) 0.5 10^3/uL (0.0-1.0); MONOCYTES % (AUTO) 5 % (0-12); NEUTROPHILS # (AUTO) 8.4 10^3/uL (1.8-7.8); NEUTROPHILS % (AUTO) 80 % (42-75); PLATELET COUNT 269 10^3/uL (130-400); WHITE BLOOD COUNT 10.5 10^3/uL (4.3-11.0)
[2022-08-20 12:43] LABS: BILIRUBIN,TOTAL 0.3 MG/DL (0.1-1.0); CALCIUM 9.1 MG/DL (8.5-10.1); CREATININE SERUM 0.51 MG/DL (0.60-1.30); POTASSIUM 4.3 MMOL/L (3.6-5.0)
[2022-08-20 12:44] LABS: ALBUMIN 4.2 GM/DL (3.2-4.5); TOTAL PROTEIN 7.8 GM/DL (6.4-8.2)
[2022-08-20 13:12] VITALS: BP 133/78
== END 2022-08-20 13:17 | disposition short-term general hospital (02) ==
LOC: EDUNIT# 11:15 → ER FS 11:16
DX: S82.872A Displaced pilon fracture of left tibia, initial encounter for closed fracture (principal); S82.832A Other fracture of upper and lower end of left fibula, initial encounter for closed fracture; E11.9 Type 2 diabetes mellitus without complications; E66.9 Obesity, unspecified; Z68.37 Body mass index [BMI] 37.0-37.9, adult; Z79.4 Long term (current) use of insulin; W10.1XXA Fall (on)(from) sidewalk curb, initial encounter
CPT/HCPCS: 29515; 36415; 73590; 73610; 80053; 82947; 85025; 93041; 96374